=== PATIENT | female | born 1965 | race Caucasian/White ===

== ENCOUNTER 2019-02-22 09:21 | Inpatient (IN) | payer OTHER ==
[~2019-02-22] VITALS: Ht 154.9 cm; Wt 59.0 kg
[~2019-02-22 09:21] MED LIST: ALBU8.5H8 INH; ATOR20TA17 PO; AZIT250T PO; IBUP800T48 PO; OMEP10CA4 PO; PROM6.25 PO; [UNRECOGNIZED DRUG - OTHER]
--- NOTE | 2019-02-22 09:27 | QN ---
Documentation Comment Medical screening exam initiated upon arrival the patient arrived by ambulance. Patient complains of abdominal pain. Patient will be sent to the waiting room for vital signs and will be seen by another provider. CONNIE ARIZA MD Feb 22, 2019 09:27
[2019-02-22] MEDS ORDERED: morphine 4 MG/ML VIAL IV STA (10:36)
[2019-02-22] MEDS ORDERED: ONDANSETRON 4 MG INJ IV STA (10:36)
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
[2019-02-22] MEDS ORDERED: AMPICILLIN/SULB 3 GM/NS (PMX) 100 ML IVPB ONE (12:00)
[2019-02-22] MEDS ORDERED: ACETAMINOPHEN 325 MG TAB PO PRN (12:00)
[2019-02-22] MEDS ORDERED: ONDANSETRON 4 MG INJ IV PRN (12:00)
[2019-02-22] MEDS: PIPER-TAZO 3.375 GM IV (PMX) 100 ML IVPB SCH ×2 (13:52→21:35)
--- NOTE | 2019-02-22 14:04 | HP ---
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 Result Diagram: 02/22/19 1058 02/22/19 1058 Results 24hrs Laboratory Tests Test 02/22/19 10:58 White Blood Count 11.4 H Red Blood Count 4.44 Hemoglobin 13.5 Hematocrit 40.8 Mean Corpuscular Volume 91.9 Mean Corpuscular Hemoglobin 30.4 Mean Corpuscular Hemoglobin Concent 33.1 Red Cell Distribution Width 12.4 Platelet Count 311 Mean Platelet Volume 9.0 Immature Granulocytes % 0.400 Neutrophils % 81.0 H Lymphocytes % 10.1 L Monocytes % 7.0 Eosinophils % 1.1 Basophils % 0.4 Nucleated Red Blood Cells % 0.0 Immature Granulocytes # 0.040 H Neutrophils # 9.2 H Lymphocytes # 1.2 Monocytes # 0.8 Eosinophils # 0.1 Basophils # 0.0 Nucleated Red Blood Cells # 0.0 Sodium Level 144 Potassium Level 4.0 Chloride Level 107 Carbon Dioxide Level 28 Anion Gap 9 Blood Urea Nitrogen 23 H Creatinine 0.97 Est Glomerular Filtrat Rate mL/min > 60 Glucose Level 101 Calcium Level 9.2 Total Bilirubin 0.6 Direct Bilirubin 0.00 Indirect Bilirubin 0.6 Aspartate Amino Transf (AST/SGOT) 32 Alanine Aminotransferase (ALT/SGPT) 26 Alkaline Phosphatase 79 Total Protein 7.7 Albumin 4.3 Globulin 3.40 H Albumin/Globulin Ratio 1.26 Lipase 151 HPI/ROS Admit Date/Time Admit Date/Time Hx of Present Illness 54 yo female, undomiciled, no significant PMH presented with abdominal pain Patient was ornery and did not comply to my history. I understand she came for abdominal pain. She wants to eat and is upset at being kept NPO. Other than this she only was willing to take about stresses of homelessness and how she lost section 8 housing Has had a CT scan showing diverticulitis ROS Constitutional: no complaints, improved Eyes: no complaints ENT: no complaints Respiratory: no complaints Cardiovascular: no complaints Gastrointestinal: no complaints Genitourinary: no complaints Musculoskeletal: no complaints Skin: no complaints Neurologic: no complaints Endocrine: no complaints Lymphatic: no complaints Psychological: no complaints, nl mood/affect Immunologic: no complaints PMH/Family/Social Past Medical History Medical History: no pertinent history Medications Current Medications Ondansetron HCl (Zofran Inj) 4 mg BRIDGE ORDER PRN IV NAUSEA/VOMITING; Start 02/22/19 at 12:00; Stop 02/23/19 at 11:59 Acetaminophen (Tylenol Tab) 650 mg ER BRIDGE PRN PO .MILD PAIN 1-3 OR TEMP; Start 02/22/19 at 12:00; Stop 02/23/19 at 11:59 IV Flush (NS 3 ml) 3 ml PER PROTOCOL IV ; Start 02/22/19 at 13:30 Morphine Sulfate (morphine) 2 mg Q4H PRN IV .SEVERE PAIN 7-10; Start 02/22/19 at 13:30 Piperacillin Sod/ Tazobactam Sod 100 ml @ 200 mls/hr Q8 IVPB Last administered on 02/22/19at 13:52; Admin Dose 200 MLS/HR; Start 02/22/19 at 14:00 Coded Allergies: No Known Drug Allergies (Verified Allergy, Unknown, 02/22/19) Past Surgical History Past Surgical Hx: no surgical history Family History Significant Family History: no pertinent family hx Social History Alcohol Use: none Smoking Status: Never smoker Drug Use: none Exam/Review of Systems Vital Signs Vitals Vital Signs Date Temp Pulse Resp B/P (MAP) Pulse Ox O2 O2 Flow FiO2 Time Delivery Rate 02/22/19 98.3 74 16 121/92 99 Room Air 12:51 (102) Exam Constitutional: alert, oriented, well developed Psych: no complaints, nl mood/affect Head: normocephalic, atraumatic Eyes: nl conjunctiva, EOMI, nl lids, nl sclera, PERRL ENMT: nl external ears & nose, nl lips & teeth, nl nasal mucosa & septum Neck: supple, non-tender Respiratory: clear to auscultation, normal air movement Cardiovascular: regular rate and rhythm, nl pulses Gastrointestinal: soft, nl liver, spleen, non-tender Musculoskeletal: nl extremities to inspection Extremities: normal pulses 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
[2019-02-22] MEDS: morphine 2 MG INJ IV PRN (15:08)
[2019-02-22 15:30] VITALS: Ht 154.9 cm; Wt 59.0 kg
[2019-02-22 15:42] VITALS: BP 114/73; PULSE 69; RESP 18
[2019-02-22 19:36] VITALS: BP 111/62; PULSE 68; RESP 18
[2019-02-22] MEDS: NACL 0.9% 3 ML SYG IV SCH (21:35)
[2019-02-23 01:18] VITALS: BP 139/79; PULSE 76; RESP 18
[2019-02-23] MEDS: morphine 2 MG INJ IV PRN (01:35)
[2019-02-23] MEDS: NACL 0.9% 3 ML SYG IV SCH (01:37)
[2019-02-23] MEDS: PIPER-TAZO 3.375 GM IV (PMX) 100 ML IVPB SCH ×3 (05:00→22:45)
[2019-02-23 08:23] VITALS: BP 101/57; PULSE 62; RESP 18
[2019-02-23] MEDS ORDERED: DOCUSATE SODIUM 100 MG CAP PO PRN (09:30)
[2019-02-23] MEDS: IBUPROFEN 400 MG TAB PO PRN (09:33)
[2019-02-23] MEDS ORDERED: SENNA TAB PO PRN (10:30)
[2019-02-23 15:16] VITALS: BP 115/63; PULSE 71; RESP 18
--- NOTE | 2019-02-23 16:39 | PN ---
Date/Time of Note Date/Time of Note DATE: 02/23/19 TIME: 16:28 Assessment/Plan VTE Prophylaxis Risk score (from Nsg)>0 risk: 1 SCD applied (from Nsg): Yes Pharmacological prophylaxis: NA/contraindicated Pharm contraindication: low risk/ambulating Lines/Catheters IV Catheter Type (from Nrsg): Saline Lock Assessment/Plan Assessment/Plan 54 yo homeless woman presents with abdominal pain, found to have newly diagnosed HIV #Diverticulitis - Symptoms improving - Tolerating regular diet - Continue zosyn while in house, discharge on metronidazole and ciprofloxacin. #Newly diagnosed HIV - Will send viral load, also RPR. - Will consult ID. Dispo: Housing is being arranged by director social. DVT: SCDs GI: None Result Diagram: 02/23/1945102/23/19451 Subjective 24 Hr Interval Summary Free Text/Dictation Patient doing well. Up and ambulating about, tolerating diet, abdominal pain improved. Exam/Review of Systems Exam Vitals Vital Signs Date Temp Pulse Resp B/P (MAP) Pulse Ox O2 O2 Flow FiO2 Time Delivery Rate 02/23/19 98.5 71 18 115/63 98 Room Air 15:16 (80) Intake and Output 02/22/19 02/22/19 02/23/19 1515:00 23:00 07:00 IntakeIntake Total 200 ml 580 ml 1380 ml BalanceBalance 200 ml 580 ml 1380 ml Exam Constitutional: alert, oriented, well developed Head: normocephalic, atraumatic Eyes: nl conjunctiva, EOMI, nl lids, nl sclera, PERRL ENMT: nl external ears & nose, nl lips & teeth, nl nasal mucosa & septum Neck: supple, non-tender Respiratory: clear to auscultation, normal air movement Cardiovascular: regular rate and rhythm, nl pulses Gastrointestinal: Soft, RLQ tenderness to palpation. Nondistended. Musculoskeletal: nl extremities to inspection Extremities: normal pulses Results Results 24hrs Laboratory Tests Test 02/23/19 04:52 White Blood Count 9.1 # Red Blood Count 3.94 L Hemoglobin 11.9 L Hematocrit 36.2 L Mean Corpuscular Volume 91.9 Mean Corpuscular Hemoglobin 30.2 Mean Corpuscular Hemoglobin Concent 32.9 Red Cell Distribution Width 12.5 Platelet Count 267 Mean Platelet Volume 9.3 Immature Granulocytes % 0.300 Neutrophils % 66.7 Lymphocytes % 23.1 Monocytes % 7.6 Eosinophils % 2.0 Basophils % 0.3 Nucleated Red Blood Cells % 0.0 Immature Granulocytes # 0.030 Neutrophils # 6.1 Lymphocytes # 2.1 Monocytes # 0.7 Eosinophils # 0.2 Basophils # 0.0 Nucleated Red Blood Cells # 0.0 Sodium Level 146 H Potassium Level 4.2 Chloride Level 110 Carbon Dioxide Level 29 Anion Gap 7 Blood Urea Nitrogen 19 Creatinine 0.92 Est Glomerular Filtrat Rate mL/min > 60 Glucose Level 99 Hemoglobin A1c 5.6 Calcium Level 8.1 L Total Bilirubin 0.4 Direct Bilirubin 0.00 Indirect Bilirubin 0.4 Aspartate Amino Transf (AST/SGOT) 22 Alanine Aminotransferase (ALT/SGPT) 23 Alkaline Phosphatase 64 Total Protein 6.2 # Albumin 3.2 #L Globulin 3.00 Albumin/Globulin Ratio 1.06 HIV (1&2) Antibody REACTIVE H Medications Medication Current Medications IV Flush (NS 3 ml) 3 ml PER PROTOCOL IV Last administered on 02/23/19 01:37; Admin Dose 3 ML; Start 02/22/19 at 13:30 Piperacillin Sod/ Tazobactam Sod 100 ml @ 200 mls/hr Q8 IVPB Last administered on 02/23/19 14:11; Admin Dose 200 MLS/HR; Start 02/22/19 at 14:00 Ibuprofen (Motrin) 400 mg Q6H PRN PO MILD PAIN(1-3) OR TEMP>38C Last administered on 02/23/19 09:33; Admin Dose 400 MG; Start 02/23/19 at 09:30 Docusate Sodium (Colace) 200 mg BID PRN PO CONSTIPATION Last administered on 02/23/19 09:33; Admin Dose 200 MG; Start 02/23/19 at 09:30 Senna (Senokot) 1 tab BID PRN PO CONSTIPATION Last administered on 02/23/19 10:23; Admin Dose 1 TAB; Start 02/23/19 at 10:30 SHYLA THOMPSON MD Feb 23, 2019 16:39
[2019-02-23 19:49] VITALS: BP 102/58; PULSE 77; RESP 18
[2019-02-24] MEDS ORDERED: LORAZEPAM 2 MG INJ IV ONE (01:00)
[2019-02-24 04:32] VITALS: BP 151/77; PULSE 72; RESP 20
[2019-02-24] MEDS: PIPER-TAZO 3.375 GM IV (PMX) 100 ML IVPB SCH (06:08)
[2019-02-24 07:39] VITALS: BP 132/51; PULSE 75; RESP 18
--- NOTE | 2019-02-24 10:01 | CONS ---
Assessment/Plan Assessment/Plan Hospital Course (Demo Recall) 1. Diverticulitis 2. HIV screen pos r; cont. abx monitor plts monitor crcl agree with current abx plan f/u std screen, added gonorrhea/chlamydia hep screen will be in shortly for further eval. Consultation Date/Type/Reason Admit Date/Time Date of Consultation: Feb 24, 2019 Type of Consult ID Reason for Consultation ABX RECS Requesting Provider: SHYLA THOMPSON MD Date/Time of Note DATE: 02/24/19 TIME: 09:57 Hx of Present Illness 54 yo female admitted with diverticulitis, improving on Zosy. HIV screen pos. confirmatory testing and std screen in progress. Past Medical History Medical History: no pertinent history Home Meds Discontinued Reported Medications Atorvastatin (Lipitor) 20 Mg Tablet, 20 MG PO BID 08/26/12 [Urine ] No Conflict Check, BID 08/26/12 Omeprazole* (Omeprazole*) 10 Mg Capsule.dr, 10 MG PO DAILY 08/26/12 Discontinued Scripts Ibuprofen* (Motrin*) 800 Mg Tab, 800 MG PO Q6H PRN for PAIN AND OR ELEVATED TEMP, #10 TAB Prov:DEMETRIUS,WINNIE 07/16/15 Albuterol Sulfate* (Proair HFA*) 8.5 Gm Hfa.aer.ad, 2 PUFF INH Q6H PRN for WHEEZING AND SOB, #1 INH Prov:DEMETRIUS,WINNIE 07/16/15 Azithromycin* (Zithromax*) 250 Mg Tablet, 250 MG PO .ZPACK DIRECTED, #6 TAB TAKE 500 MG (2 TABS) THE FIRST DAY THEN 250 MG (1 TAB) DAYS 2-5 Prov:WINNIE ROMO 07/16/15 Promethazine w/Codeine* (Phenergan w/Codeine* Syrup) 5 Ml Syrup, 5 ML PO Q4H PRN for COUGH, #4 OZ Prov:WINNIE ROMO 07/16/15 Medications Current Medications IV Flush (NS 3 ml) 3 ml PER PROTOCOL IV Last administered on 02/23/19at 01:37; Admin Dose 3 ML; Start 02/22/19 at 13:30 Piperacillin Sod/ Tazobactam Sod 100 ml @ 200 mls/hr Q8 IVPB Last administered on 02/24/19 06:08; Admin Dose 200 MLS/HR; Start 02/22/19 at 14:00 Ibuprofen (Motrin) 400 mg Q6H PRN PO MILD PAIN(1-3) OR TEMP>38C Last administered on 02/23/19 09:33; Admin Dose 400 MG; Start 02/23/19 at 09:30 Docusate Sodium (Colace) 200 mg BID PRN PO CONSTIPATION Last administered on 02/23/19 09:33; Admin Dose 200 MG; Start 02/23/19 at 09:30 Senna (Senokot) 1 tab BID PRN PO CONSTIPATION Last administered on 02/23/19 10:23; Admin Dose 1 TAB; Start 02/23/19 at 10:30 Allergies: Coded Allergies: No Known Drug Allergies (Verified Allergy, Unknown, 02/22/19) Past Surgical History Past Surgical Hx: no surgical history Social History Alcohol Use: none Smoking Status: Former smoker Drug Use: none Exam/Review of Systems Exam Vitals Vital Signs Date Temp Pulse Resp B/P (MAP) Pulse Ox O2 O2 Flow FiO2 Time Delivery Rate 02/24/19 98.6 75 18 132/51 98 07:39 (78) 02/23/19 Room Air 19:49 Intake and Output 02/23/19 02/23/19 02/24/19 1515:00 23:00 07:00 IntakeIntake Total 940 ml 480 ml 200 ml BalanceBalance 940 ml 480 ml 200 ml Results Result Diagram: 02/23/19 0452 02/23/19 0452 Medications Medication Current Medications IV Flush (NS 3 ml) 3 ml PER PROTOCOL IV Last administered on 02/23/19 01:37; Admin Dose 3 ML; Start 02/22/19 at 13:30 Piperacillin Sod/ Tazobactam Sod 100 ml @ 200 mls/hr Q8 IVPB Last administered on 02/24/19 06:08; Admin Dose 200 MLS/HR; Start 02/22/19 at 14:00 Ibuprofen (Motrin) 400 mg Q6H PRN PO MILD PAIN(1-3) OR TEMP>38C Last administered on 02/23/19 09:33; Admin Dose 400 MG; Start 02/23/19 at 09:30 Docusate Sodium (Colace) 200 mg BID PRN PO CONSTIPATION Last administered on 02/23/19at 09:33; Admin Dose 200 MG; Start 02/23/19 at 09:30 Senna (Senokot) 1 tab BID PRN PO CONSTIPATION Last administered on 02/23/19at 10:23; Admin Dose 1 TAB; Start 02/23/19 at 10:30 SHAKIRA MILLER MD Feb 24, 2019 10:01
[2019-02-24] MEDS: IBUPROFEN 400 MG TAB PO PRN (10:39)
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
[2019-02-24] MEDS ORDERED: LORAZEPAM 1 MG TAB PO PRN (13:30)
[2019-02-24 14:12] VITALS: BP 132/79; PULSE 88; RESP 18
--- NOTE | 2019-02-24 16:17 | PN ---
Date/Time of Note Date/Time of Note DATE: 02/24/19 TIME: 16:15 Assessment/Plan VTE Prophylaxis Risk score (from Nsg)>0 risk: 1 SCD applied (from Nsg): Yes Pharmacological prophylaxis: NA/contraindicated Pharm contraindication: low risk/ambulating Lines/Catheters IV Catheter Type (from Nrsg): Saline Lock Assessment/Plan Assessment/Plan 54 yo homeless woman presents with abdominal pain, found to have newly diagnosed HIV #Diverticulitis - Symptoms improving - Tolerating regular diet - Continue zosyn while in house, discharge on metronidazole and ciprofloxacin. #Newly diagnosed HIV - F/U viral load, also RPR. - Dr Arriaga following - Also hepatitis panel Dispo: No housing. Waiting for ID's opinion, then discharge. DVT: SCDs GI: None Result Diagram: 02/23/1945102/23/19451 Subjective 24 Hr Interval Summary Free Text/Dictation No acute overnight events. Patient doing well. Exam/Review of Systems Exam Vitals Vital Signs Date Temp Pulse Resp B/P (MAP) Pulse Ox O2 O2 Flow FiO2 Time Delivery Rate 02/24/19 98.6 88 18 132/79 100 14:12 (96) 02/23/19 Room Air 19:49 Intake and Output 02/23/19 02/23/19 02/24/19 1515:00 23:00 07:00 IntakeIntake Total 940 ml 480 ml 200 ml BalanceBalance 940 ml 480 ml 200 ml Exam Constitutional: alert, oriented, well developed Head: normocephalic, atraumatic Eyes: nl conjunctiva, EOMI, nl lids, nl sclera, PERRL ENMT: nl external ears & nose, nl lips & teeth, nl nasal mucosa & septum Neck: supple, non-tender Respiratory: clear to auscultation, normal air movement Cardiovascular: regular rate and rhythm, nl pulses Gastrointestinal: Soft, RLQ tenderness to palpation. Nondistended. Musculoskeletal: nl extremities to inspection Extremities: normal pulses Medications Medication Current Medications IV Flush (NS 3 ml) 3 ml PER PROTOCOL IV Last administered on 02/23/19at 01:37; Admin Dose 3 ML; Start 02/22/19 at 13:30 Ibuprofen (Motrin) 400 mg Q6H PRN PO MILD PAIN(1-3) OR TEMP>38C Last admin istered on 02/24/19at 10:39; Admin Dose 400 MG; Start 02/23/19 at 09:30 Docusate Sodium (Colace) 200 mg BID PRN PO CONSTIPATION Last administered on 02/23/19at 09:33; Admin Dose 200 MG; Start 02/23/19 at 09:30 Senna (Senokot) 1 tab BID PRN PO CONSTIPATION Last administered on 02/23/19at 10:23; Admin Dose 1 TAB; Start 02/23/19 at 10:30 Lorazepam (Ativan) 1 mg Q6H PRN PO ANXIETY; Start 02/24/19 at 13:30 Ciprofloxacin (Cipro) 500 mg BID@06,18 PO ; Start 02/24/19 at 18:00 Metronidazole (Flagyl) 500 mg Q8 PO ; Start 02/24/19 at 22:00 SHYLA THOMPSON MD Feb 24, 2019 16:17
[2019-02-24 16:50] VITALS: BP 131/80; PULSE 73; RESP 18
[2019-02-24] MEDS ORDERED: ACETAMINOPHEN 325 MG TAB PO PRN (17:00)
[2019-02-24] MEDS: CIPROFLOXACIN 500 MG TAB PO SCH (17:53)
[2019-02-24] MEDS ORDERED: CIPR500T4 PO (18:30)
[2019-02-24] MEDS ORDERED: METR500T PO (18:30)
--- NOTE | 2019-02-24 18:40 | PDOCDIS ---
Discharge Instructions DIAGNOSIS Discharge Diagnosis Acute diverticulitis New HIV infection CONDITION [id number] Patient Condition: Osrac5i Good HOME CARE INSTRUCTIONS: [id number] Diet Instructions: [id number] Regular ACTIVITY: [id number] Activity Restrictions: [id number] No Restrictions FOLLOW UP/APPOINTMENTS Follow-up Plan 1. Take all medication as prescribed. Optimal treatment of your diverticulitis includes one more week of oral antibiotics. 2. For chronic back pain, take OTC ibuprofen up to 600mg every 6 hours and acetaminophen (tylenol) 650mg every 6 hours. SHYLA THOMPSON MD Feb 24, 2019 18:40
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
[2019-02-24] MEDS: IBUPROFEN 600 MG TAB PO PRN (20:43)
[2019-02-24 20:46] VITALS: BP 137/81; PULSE 67; RESP 18
[2019-02-24] MEDS: metroNIDAZOLE 500 MG TAB PO SCH (22:30)
[2019-02-24] MEDS ORDERED: PE/SHARK OIL/MO/PETROL 30 GM OINT PR PRN (23:00)
[2019-02-25 02:26] VITALS: BP 134/77; PULSE 67; RESP 18
[2019-02-25] MEDS: IBUPROFEN 600 MG TAB PO PRN (03:33)
[2019-02-25] MEDS: CIPROFLOXACIN 500 MG TAB PO SCH (05:43)
[2019-02-25] MEDS: metroNIDAZOLE 500 MG TAB PO SCH (05:43)
[2019-02-25 08:01] VITALS: BP 135/81; PULSE 70; RESP 18
[2019-02-25] MEDS ORDERED: DIBUCAINE 1% 30 GM OINT TOP PRN (11:30)
== END 2019-02-25 12:25 | disposition home or self-care (01) | DRG 392 ==
LOC: E/R 09:21 → MS1 11:55 → SUATTDRO 13:03 → MS1 02-23 17:07 → 5EC 02-24 16:35
PROVIDERS: ADMIT Internal Medicine; ATTEND Internal Medicine
DX: K57.32 Diverticulitis of large intestine without perforation or abscess without bleeding (principal); F33.2 Major depressive disorder, recurrent severe without psychotic features; Z59.0 Homelessness; F43.10 Post-traumatic stress disorder, unspecified; Z87.891 Personal history of nicotine dependence
CPT/HCPCS: 36415; 74176; 80053; 81003; 83036; 83690; 85025; 86592; 86701; 86703; 86706; 86708; 86803; 87340; 87536; 87591; 96374; 96375; J0295; J2270; J2405; J2543